=== PATIENT | male | born 1945 | race Caucasian/White ===

== ENCOUNTER 2019-08-08 12:10 | Outpatient (CLI) | payer OTHER, MEDICARE, SELFPAY ==
[2019-08-08 12:47] LABS: Gentamicin Trough 1.1 ug/mL (0.0-8.0)
[2019-08-08 13:02] LABS: Gentamicin Peak 9.9 ug/mL (2.0-8.0)
== END 2019-08-08 12:11 | disposition home or self-care (01) ==
PROVIDERS: Visit Provider Family Medicine
DX: R50.9 Fever, unspecified (principal); J18.9 Pneumonia, unspecified organism
CPT/HCPCS: 80170